=== PATIENT | female | born 1985 | race Two or more races ===

== ENCOUNTER 2017-03-21 21:41 | Emergency (ER) | payer SELFPAY ==
[~2017-03-21] VITALS: Ht 160 cm; Wt 68.0 kg
[2017-03-21 21:56] VITALS: BP 134/92
[2017-03-21] MEDS ORDERED: BENZTROPINE MESYLATE (2MG/2ML) 2 MG/2 ML AMPUL ONE (22:20)
[2017-03-21] MEDS ORDERED: PROCHLORPERAZINE EDISYLATE 10 MG/2 ML VIAL ONE (22:20)
[2017-03-21] MEDS ORDERED: KETOROLAC TROMETHAMINE INJ 60 MG/2 ML VIAL IM ONE ×2 (22:20→22:30)
[2017-03-21] MEDS ORDERED: HYDROMORPHONE 1 MG/1 ML DISP.SYRIN ONE (22:20)
--- NOTE | 2017-03-21 22:24 | NUR ---
PT WITNESSED LEAVING THE ER WITH STEADY GAIT BY MULTIPLE STAFF. PT LEFT BEFORE NURSING ASSESSMENT OR MEDICATION ADMINISTRATION. NOTIFIED.
[2017-03-21] MEDS ORDERED: PROCHLORPERAZINE EDISYLATE 10 MG/2 ML VIAL IM ONE (22:30)
[2017-03-21] MEDS ORDERED: HYDROMORPHONE 1 MG/1 ML DISP.SYRIN IM ONE (22:30)
[2017-03-21] MEDS ORDERED: BENZTROPINE MESYLATE (2MG/2ML) 2 MG/2 ML AMPUL IM ONE (22:30)
== END 2017-03-21 22:38 | disposition left against medical advice (07) ==
LOC: ER 21:43
DX: G43.909 Migraine, unspecified, not intractable, without status migrainosus (principal); F14.10 Cocaine abuse, uncomplicated
CPT/HCPCS: 99281; A4606; Z7610; J0515; J0780; J1170; J1885; Z7502